=== PATIENT | male | born 1965 | race Caucasian/White ===

== ENCOUNTER → 2024-05-12 | Outpatient (CLI) | payer BC ==
--- NOTE | 2024-05-13 18:44 | PE ---
EXAMINATION TYPE: PET CT fusion skull to thigh DATE OF EXAM: 05/12/2024 CLINICAL INDICATION:Male, 59 years old with history of R91.1 lung nodule; TECHNIQUE: Following the intravenous administration of 6.70 mCi of F-18 FDG, whole body images are performed from the skull base to the midthigh. Images are reviewed on the computer in the coronal, a xial, and sagittal planes. Reconstructed rotating images are created on independent workstation and reviewed on the computer. A non-contrast CT is performed in conjunction with the PET scan. Glucose level 109 mg/dL CT DLP: 1213.47 mGycm, Automated exposure control for dose reduction was used. COMPARISON: CT None, PET/CT None, MRI: None FINDINGS: Mediastinal SUV mean is 2.23. Hepatic parenchyma SUV mean is 2.43. SKULL BASE AND NECK: There is focal radiotracer uptake of maximum SUV of 8.18 in the region of the lateral right thyroid l obe/supraclavicular region. No obvious lymph node or thyroid nodule within the limitations of a nonco ntrast exam. CHEST, MEDIASTINUM, AND HILAR REGION: Left upper lobe perihilar 2.8 cm pulmonary nodule (series 3, image 98) with a maximum SUV of 15.39. ABDOMEN AND PELVIS: No suspicious radiotracer activity. MUSCULOSKELETAL STRUCTURES: No suspicious radiotracer activity. OTHER CT: Small hiatal hernia. Cholelithiasis. Hepatic steatosis. Bilateral vasectomy changes. IMPRESSION: 1. FDG avid left upper lobe perihilar 2.8 cm pulmonary nodule most consistent with primary lung canc er. 2. Single focal FDG radiotracer focus in the region of the right thyroid lobe/supraclavicular region without CT correlate within the limitations of a noncontrast exam. May represent a thyroid nodule ve rsus lymph node. Radiotracer uptake raises concern for metastasis. Consider further evaluation with C T neck with IV contrast.
== END | disposition home or self-care (01) ==
LOC: RADPETMAIN 08:44
PROVIDERS: ATTEND Internal Medicine Critical Care Medicine
DX: R91.1 Solitary pulmonary nodule (principal)
CPT/HCPCS: 78815; A9552

== ENCOUNTER 2024-05-26 12:58 | Day surgery (SDC) | payer BC ==
[~2024-05-26 12:58] MED LIST: HYDROmorphone 0.5 MG/0.5 ML SYRINGE IVP PRN; LACTATED RINGERS 1,000 ML IV SCH; LIDOCAINE 1% (10MG/ML) FOR IV START INTRADERMA PRN; droPERidol 5 MG/2 ML VIAL IVP ONE
[2024-05-26] MEDS: IV FLUID CONTINUATION 1,000 ML IV ONE (13:05)
[2024-05-26] MEDS: LACTATED RINGERS 1,000 ML IV SCH (13:07)
[2024-05-26] MEDS: ONDANSETRON 4 MG/2 ML VIAL IVP ONE (13:09)
[2024-05-26] MEDS: DEXAMETHASONE SOD PHOSPHATE 4 MG/ML 1 ML VIAL IV ONE (13:09)
[2024-05-26 13:16] VITALS: RESP 18
[2024-05-26] MEDS ORDERED: NEOSTIGMINE 1 MG/ML 10 ML VIAL ONE (14:09)
[2024-05-26] MEDS ORDERED: SUCCINYLCHOLINE CHLORIDE 200 MG/10 ML VIAL IV ONE (14:09)
[2024-05-26] MEDS ORDERED: LIDOCAINE 1% INJ 10MG/ML (20 ML MDV) ONE (14:09)
[2024-05-26] MEDS ORDERED: fentaNYL (PF) 50 MCG/ML 2 ML AMP ONE (14:09)
[2024-05-26] MEDS ORDERED: GLYCOPYRROLATE 0.2 MG/ML 2 ML VIAL ONE (14:09)
[2024-05-26] MEDS ORDERED: ROCURONIUM 10 MG/ML (5 ML VIAL) IV ONE (14:09)
[2024-05-26] MEDS ORDERED: MIDAZOLAM 2 MG/2 ML VIAL ONE (14:09)
[2024-05-26] MEDS ORDERED: PROPOFOL 10 MG/ML 20 ML VIAL IV ONE (14:09)
--- NOTE | 2024-05-26 14:20 | CT ---
EXAMINATION TYPE: CT Chest [facility] protocol DATE OF EXAM: 05/26/2024 COMPARISON: 05/12/2024. HISTORY: Pulmonary nodule suspicious for malignancy. CT DLP: 771 mGycm. Automated Exposure Control for Dose Reduction was Utilized. TECHNIQUE: CT scan of the thorax is performed without IV contrast. FINDINGS: LUNGS/ PLEURA: Left upper lobe 13 mm nodule and left perihilar 26 mm mass no focal consolidation, pne umothorax or pleural effusion. AIRWAY: Patent and unremarkable. HEART: Size within normal limits. MEDIASTINUM: No gross evidence of adenopathy. No greater than 1.0 cm short axis lymph node. VASCULATURE: No aortic aneurysm. MUSCULOSKELETAL: No acute osseous abnormalities SOFT TISSUES/LYMPH NODES: Unremarkable. LOWER NECK: No significant findings. UPPER ABDOMEN: No significant findings. OTHER gallstones in the gallbladder lumen. IMPRESSION: 1. 13 mm left upper lobe. 2. Perihilar mass measuring 20 mm. 3. No evidence for metastatic disease to mediastinum mediastinum, specifically no greater than 1.0 c m in short axis lymph nodes visualized.
--- NOTE | 2024-05-26 16:00 | P.PCN ---
Date of Procedure: 05/26/24 Operative Findings: Preoperative Diagnosis: Left hilar mass Preoperative Diagnosis: Left hilar mass Procedure(s) Performed: Flexible bronchoscopy Robotic-assisted bronchoscopy and addition to radial ultrasound evaluation of the left hilar mass Robotic-assisted transbronchial needle aspirate, transbronchial biopsies of the left hilar mass pulmonary nodule in addition to a bronchioloalveolar lavage Anesthesia: WAQAR Surgeon: Rohit Augustin Estimated Blood Loss (ml): 0 Pathology: other Condition: stable Disposition: same day Operative Findings: A physical exam was performed. Informed consent was obtained from the patient after explaining all the risks (pneumothorax, life threatening bleeding, infection and adverse effects due to medications), benefits and alternatives to the procedure which the patient appeared to understand and so stated. The patient was connected to the monitoring devices. General anesthesia was induced and the patient was intubated by anesthesia. A final timeout was performed and the procedure confirmed by the attending staff bronchoscopist. The bronchoscope was inserted and the airway examined. Airway examination shows that the distal trachea, Right upper lobe and middle lobe and lower lobe bronchi was all within normal limits. Patient left mainstem bronchus is within normal limits. Examination of left lower lobe was within normal limits. The superior lingula and anterior segment of the left upper lobe was extrinsically compressed. Nevertheless, there was no evidence of any endobronchial lesion. The flexible bronchoscope was removed and the robotic bronchoscope was inserted. Registration was completed. I next guided the robotic bronchoscope using the navigation system into the left upper lobe anterior segment. Once in proper position, the bronchoscope was frozen. The radial EBUS probe was placed through the bronchoscope and confirmed abnormal u/s images vs normal lung. A needle was placed through the working channel and under fluoroscopic guidance, we sampled the area thought to have the mass twice. We then used a cloud biopsy pattern with ultrasound confirmation for 2 additional passes with the needle. U/S evaluation was then used to reconfirm location. Forceps were next introduced through working channel and extended the appropriate distance and 3 transbronchial biopsies were performed using fluoroscopic guidance. The u/s probe was then reinserted to confirm location. When confirmed this process was repeated for a total of 8-10 transbronchial biopsies. After reassessment with EBUS, a brush was placed through the extendable working channel for 1 pass with fluoroscopic guidance. U/S evaluation was then used to confirm location. 40ml of saline was then instilled into the area of the lesion. 10 ml of effluent from the BAL was collected. The aspirate was bloody and ultimately declotted and based on that, the sample was discarded. Flex. bronchoscope was inserted and regular suctioning was done. At the com pletion of the procedure, no residual secretions or bloody material within the airway. The bronchoscope was removed. The patient was extubated. FINDINGS: 1.The airways appeared normal 2 Successful navigation, ultrasonographic identification, and biopsies of left hilar mass 3.The the radial ultrasound view was concentric RECOMMENDATIONS: Await pathology and cytology results The referring physician will be alerted to the results when available. The patient was advised to follow up with the referring physician with the biopsy results Patient will be called with results.
[2024-05-26 16:08] VITALS: TEMP 97
--- NOTE | 2024-05-26 16:34 | XR ---
EXAMINATION TYPE: XR chest 1V DATE OF EXAM: 05/26/2024 4:27 PM CLINICAL INDICATION: Male, 59 years old with history of post bx; [facility] COMPARISON: CT same day. TECHNIQUE: XR chest 1V Frontal view of the chest. FINDINGS: Lungs/Pleura: There is no evidence of pleural effusion, focal consolidation, or pneumothorax. Pulmonary vascularity: Unremarkable. Heart/mediastinum: Cardiomediastinal silhouette is unremarkable. Musculoskeletal: No acute osseous pathology. IMPRESSION: Postbiopsy changes no evidence of pneumothorax.
[2024-05-26 17:05] VITALS: BP 118/69; PULSE 65
--- NOTE | 2024-06-16 10:36 | FL ---
EXAMINATION TYPE: FL bronchoscopy DATE OF EXAM: 05/26/2024 3:59 PM COMPARISON: Pre Operative Images if available both CT/MRI or plain film CLINICAL INDICATION: Male, 59 years old with history of PULMONARY NODULE; TECHNIQUE: FL bronchoscopy, multiple fluoroscopic images provided for procedure. Total fluoroscopy time: 2min 25 seconds Total submitted images to PACS: 2 DAP: 8.0533 mGym2 Gycm2 uGym2 cGycm2 or equivalent. FINDINGS: ION bronchoscopy images demonstrate bronchoscope terminating in the lung. No immediate complications identified, no pneumothorax identified. IMPRESSION: 1. No evidence for intraoperative complication. 2. Please see the operative/procedural note for further details. [facility], , 06/16/2024 10:33 AM
== END 2024-05-26 17:04 | disposition home or self-care (01) ==
LOC: ORWHC2ENDO 12:58
PROVIDERS: ATTEND Internal Medicine Critical Care Medicine
DX: R91.1 Solitary pulmonary nodule
CPT/HCPCS: 31623; 31624; 31628; 31629; 71045; 71250; 87070; 87077; 87102; 87116; 87186; 87205; 87206; 88305

== ENCOUNTER → 2024-06-14 | Outpatient (CLI) | payer BC ==
[2024-06-14 11:59] LABS: INR 0.9 (<1.2); Partial Thromboplastin Time 22.6 sec (22.0-30.0)
[2024-06-14 15:12] LABS: Basophils # (A) 0.06 X 10*3/uL (0.00-0.10); Eosinophils # (A) 0.19 X 10*3/uL (0.04-0.35); Eosinophils % (A) 3.2 %; HCT 40.6 % (39.6-50.0); HGB 13.5 g/dL (13.0-17.0); Lymphocytes # (A) 1.91 X 10*3/uL (0.90-5.00); Lymphocytes % (A) 31.8 %; MCH 31.8 pg (27.0-32.0); MCHC 33.3 g/dL (32.0-37.0); MCV 95.8 FL (80.0-97.0); Mean Platelet Volume 11.4 FL (9.5-12.2); Monocytes # (A) 0.49 X 10*3/uL (0.20-1.00); Monocytes % (A) 8.2 %; NRBC Per 100 WBC 0 X 10*3/uL (0.00-0.01); Neutrophils # (A) 3.33 X 10*3/uL (1.80-7.70); Neutrophils % (A) 55.5 %; Platelet Count 230 X 10*3/uL (140-440); RBC 4.24 X 10*6/uL (4.40-5.60); RDW 12.6 % (11.5-14.5)
[2024-06-14 15:36] LABS: Appearance,Urine Clear (Clear); Bilirubin,Urine Negative (Negative); Blood,Urine Negative (Negative); Color,Urine Yellow (Yellow); Ketones,Urine Negative (Negative); Nitrite,Urine Negative (Negative); PH, Urine 7.5; Specific Gravity,Urine 1.017 (1.001-1.030)
[2024-06-14 17:21] LABS: Blood Urea Nitrogen 13.7 mg/dL (9.0-27.0); Chloride 105 mmol/L (96-109); Glucose 113 mg/dL (70-110); Potassium 4.3 mmol/L (3.5-5.5); Sodium 143 mmol/L (135-145)
== END | disposition home or self-care (01) ==
LOC: LABPAT 10:56
PROVIDERS: ATTEND Internal Medicine Geriatric Medicine
DX: Z01.818 Encounter for other preprocedural examination
CPT/HCPCS: 80051; 81003; 82565; 82947; 84520; 85025; 85610; 85730; 86850; 86900; 86901; 87086; 93005

== ENCOUNTER 2024-06-23 09:10 | Inpatient (IN) | payer BC ==
[~2024-06-23 09:10] MED LIST changes: -LACTATED RINGERS 1,000 ML IV SCH; -LIDOCAINE 1% (10MG/ML) FOR IV START INTRADERMA PRN; -droPERidol 5 MG/2 ML VIAL IVP ONE; +fentaNYL (PF) 50 MCG/ML 2 ML AMP IV PRN
[2024-06-23] MEDS: IV FLUID CONTINUATION 1,000 ML IV ONE ×4 (09:54)
[2024-06-23] MEDS: LACTATED RINGERS 1,000 ML IV SCH (10:06)
[2024-06-23] MEDS: ONDANSETRON 4 MG/2 ML VIAL IVP STA (10:06)
[2024-06-23] MEDS: MIDAZOLAM 2 MG/2 ML VIAL IV ONE (11:04)
[2024-06-23] MEDS ORDERED: ACETAMINOPHEN IV (For NPO) 1,000 MG/100 ML VIAL ONE (11:50)
[2024-06-23] MEDS ORDERED: NEOSTIGMINE 1 MG/ML 10 ML VIAL ONE (11:50)
[2024-06-23] MEDS ORDERED: ROPIVACAINE 5 MG/ML 30 ML VIAL ONE (11:50)
[2024-06-23] MEDS ORDERED: DEXAMETHASONE SOD PHOSPHATE 4 MG/ML 1 ML VIAL ONE (11:50)
[2024-06-23] MEDS ORDERED: PROPOFOL 10 MG/ML 20 ML VIAL IV ONE (11:50)
[2024-06-23] MEDS ORDERED: fentaNYL (PF) 50 MCG/ML 2 ML AMP ONE (11:50)
[2024-06-23] MEDS ORDERED: MIDAZOLAM 2 MG/2 ML VIAL ONE (11:50)
[2024-06-23] MEDS ORDERED: ROCURONIUM 10 MG/ML (5 ML VIAL) IV ONE (11:50)
[2024-06-23] MEDS ORDERED: SUCCINYLCHOLINE CHLORIDE 200 MG/10 ML VIAL IV ONE (11:50)
[2024-06-23] MEDS ORDERED: SODIUM CHLORIDE 0.9% (PF) 10 ML VIAL ONE (11:50)
[2024-06-23] MEDS ORDERED: HYDROmorphone (PF) 1 MG/ML ONE (11:50)
[2024-06-23] MEDS ORDERED: ALBUTEROL HFA INHALER INHALATION ONE (11:50)
[2024-06-23] MEDS ORDERED: GLYCOPYRROLATE 0.2 MG/ML 2 ML VIAL ONE (11:50)
[2024-06-23] MEDS ORDERED: KETAMINE HCL IN 0.9 % NACL 50 MG/5 ML SYRINGE ONE (11:50)
[2024-06-23] MEDS ORDERED: LIDOCAINE 1% INJ 10MG/ML (20 ML MDV) ONE (11:50)
[2024-06-23] MEDS: ceFAZolin 3 GM in SODIUM CHLORIDE 0.9% 100 ML IVPB PRN (11:55)
[2024-06-23] MEDS: BUPIVACAINE (PF) 0.5% 30 ML VIAL SQ ONE (12:53)
[2024-06-23 13:20] LABS: ABG Base Excess -0.8 mmol/L; ABG HCO3 26 mmol/L (21-25); ABG Oxygen Saturation 88.5 % (94-97); ABG PCO2 51 mmHg (35-45); ABG PH 7.32 (7.35-7.45); ABG PO2 60 mmHg (83-108); ABG TCO2 28 mmol/L (19-24)
[2024-06-23 13:21] LABS: Allen Test Performed? Yes
[2024-06-23 14:01] LABS: ABG Base Excess -0.6 mmol/L; ABG HCO3 26 mmol/L (21-25); ABG Oxygen Saturation 89.9 % (94-97); ABG PCO2 47 mmHg (35-45); ABG PH 7.34 (7.35-7.45); ABG PO2 61 mmHg (83-108); ABG TCO2 27 mmol/L (19-24); Allen Test Performed? Yes
--- NOTE | 2024-06-23 14:57 | P.OP ---
Date of Procedure: 06/23/24 Preoperative Diagnosis: Lung cancer left upper lobe Postoperative Diagnosis: Same Procedure(s) Performed: Robotic assisted thoracoscopic left upper lobectomy with mediastinal lymph node dissection Anesthesia: CAMILOA Surgeon: Alec Rodriguez Estimated Blood Loss (ml): 20 IV fluids (ml): 1,000 Urine output (ml): 250 Pathology: other (Left upper lobe 4 frozen section bronchial margin check and permanent section; lymph node stations L5, L8, L9, L10, L11, level 7 all for permanent section) Condition: stable Disposition: PACU Indications for Procedure: 59-year-old male with newly discovered left upper lobe central tumor on CT scree lxami. Workup revealed positive malignancy with no evidence of metastasis. He was a good candidate for lobectomy and elective surgery was scheduled. Operative Findings: There were no intrapleural adhesions. Fissures were complete. There was extensive anthracotic lymphadenopathy. No obvious tumor involvement of the lymph nodes. Approximately 3 cm central tumor was present. Bronchial margin was negative. Description of Procedure: Patient was brought to the operating room and placed supine on the operating table. General anesthesia was induced. He was intubated with a double-lumen endotracheal tube and it was positioned appropriately with fiberoptic bronchoscopy. No endobronchial lesions were noted. Tube was secured in position and the patient turned in the right lateral decubitus position. He was appropriately positioned for robotic lobectomy. The left chest was sterilely prepped and draped. Initial incision was made in the eighth interspace in the midaxillary line under single lung ventilation. 8 mm robotic port was placed in the pleural space. After confirming presence in the pleural space with thoracoscopy CO2 insufflation was begun. 2 robotic 12 mm ports were placed anterior and posterior to the initial port in the same interspace. A second 8 mm port was placed posteriorly in the about the fifth interspace. Working port was placed anteriorly at the level of the diaphragm. The robot was docked. Chest was explored with findings noted as above. We began dissection in the fissure and dissected out the lingular branch of the pulmonary artery, ligating and dividing it with a robotic stapler. 2 further branches were dissected out proximal to this and were ligated and divided with a single firing of a robotic stapler. Dissection was now carried out in the hilum down onto the division of the mainstem bronchus to the upper and lower lobe bronchus and the lymph node there was resected and sent as L11 lymph node. Dissection was now taken down to the inferior pulmonary ligament which was mobilized. Dissection was continued posteriorly past and above the inferior pulmonary vein. Are 8 and level 7 lymph nodes were resected in the region of the left mainstem bronchus and then dissection was carried up toward the pulmonary artery. L10 lymph nodes were resected here. Going more superiorly we could not identify any L6 lymph nodes. Dissection was now carried anteriorly. We dissected out the superior pulmonary vein. The L5 lymph nodes were resected. We encircled the superior pulmonary vein and ligated and divided it with a robotic vascular stapler. This brought us onto the bronchus. Further lymph nodes were resected some en bloc and some separately and sent as L11 lymph nodes. We encircled the left upper lobe bronchus and ligated and divided it with a robotic green stapler. We are now able to encircle the truncus anteriosus. It was ligated and divided with a single firing of a robotic vascular stapler. This completed the resection of the left upper lobe. It was placed in an Endo Catch bag. The robot was undocked. Working port incision was enlarged in the left upper lobe was brought out in the bag through this incision. It was sent for bronchial margin check which did return negative. Chest was checked for hemostasis throughout and then irrigated with warm water. We inflated the lung under water toward her and saw no air leaks. Water was evacuated and a 28 Icelandic chest tube was placed through separate stab incision and positioned posterior apically. We again inflated the lung securing the chest tube and connecting it to a Pleur-evac. The incisions were closed with layers of Vicryl suture. Skin glue and dry sterile dressings were applied. Rib blocks were performed posteriorly at the level of the incisions. The patient was extubated and transferred to recovery in stable condition.
[2024-06-23] MEDS: HYDROmorphone 0.5 MG/0.5 ML SYRINGE IVP PRN (15:40)
[2024-06-23] MEDS ORDERED: ONDANSETRON 4 MG/2 ML VIAL IVP PRN (16:37)
[2024-06-23] MEDS ORDERED: bisacodyL 10 MG SUPP RECTAL PRN (16:37)
[2024-06-23] MEDS ORDERED: IPRATROPIUM-ALBUTEROL 3 ML NEB IH PRN (16:37)
--- NOTE | 2024-06-23 16:38 | XR ---
EXAMINATION TYPE: XR chest 1V portable DATE OF EXAM: 06/23/2024 Comparison: 05/26/2024 Clinical History: 59-year-old male post left upper lobectomy Findings: There is a left-sided chest tube present. Heart mildly enlarged. Extensive opacification throughout t he right upper lobe and additional patchy density at the right lower lung. No sizable pleural effusio n on the frontal view. Impression: 1. Left-sided chest tube. No appreciable pneumothorax. 2. Extensive airspace disease throughout the right upper lobe and to a lesser extent within the right mid and lower lung. 3. Mild cardiomegaly. [facility], , 06/23/2024 4:35 PM
[2024-06-23] MEDS: KETOROLAC 15 MG/ML 1 ML VIAL IVP SCH (17:11)
[2024-06-23] MEDS: HEPARIN SODIUM,PORCINE 5,000 UNIT/ML 1 ML VIAL SQ SCH (17:11)
[2024-06-23] MEDS: DEXTROSE 5%-0.45% NACL 1,000 ML IV SCH (17:12)
[2024-06-23] MEDS: traMADol 50 MG TAB PO PRN (18:25)
--- NOTE | 2024-06-23 18:35 | P.ANPRN ---
Procedure Note - Anesthesia - Nerve Block Performed Left Erector Spinae Single Time Out Performed: Yes Date of Procedure: 06/23/24 Procedure Start Time: 11:14 Procedure Stop Time: 11:17 Location of Patient: PreOp Indication: Acute Post-Operative Pain, Requested by Surgeon Sedation Type: Sedate with meaningful contact maintained Preparation: Sterile Prep Position: Sitting Needle Types: Pajunk Needle Gauge: 21 Ultrasound used to visualize needle placement: Yes Ultrasound used to observe medication spread: Yes Blood Aspirated: No Pain Paresthesia on Injection Noted: No Resistance on Injection: Normal Image Stored and Saved: Yes Events: Uneventful and Well Tolerated (Again attempted 3.5% 150 cc plus normal saline 10 cc plus dexamethasone 4 mg given at T6 on the left side)
[2024-06-23] MEDS: ACETAMINOPHEN TAB 325 MG TAB PO PRN (19:26)
[2024-06-23] MEDS: ceFAZolin 3 GM in SODIUM CHLORIDE 0.9% 100 ML IVPB SCH (19:51)
[2024-06-23] MEDS: IPRATROPIUM-ALBUTEROL 3 ML NEB IH SCH (20:24)
[2024-06-23] MEDS: HYDROmorphone 1 MG/ML 1 ML SYRINGE IVP PRN (20:42)
--- NOTE | 2024-06-23 22:03 | P.CONS ---
History of Present Illness - Reason for Consult Consult date: 06/23/24 Medical management Requesting physician: Alec Rodriguez - Chief Complaint Post left upper lobectomy with mediastinal lymph node dissection - History of Present Illness HISTORY OF PRESENT ILLNESS: 59-year-old one of our office patient who has been seen for the last few months as a new patient was originally presented to get established with his history of mild dyspnea and shortness of breath and cough obtained an x-ray of the lung and furthermore CAT scan shows left upper lobe fairly central mass he had a PET scan performed in the end of April which showed uptake in the mass it also showed small satellite nodular more superficial in the lung which did not have any uptake and measure about 1 cm, central mass measured about 2 to 3 cm the patient underwent bronchoscopy with Dr. GOLDBERG with biopsy and fortunately was nonconclusive. Was referred to cardiothoracic for consideration of lobectomy. Lung function test done and showed FEV1 of 86 percentile patient was scheduled for elective surgery today 06/23/2024, ended up having robotic assisted thoracoscopy of the left upper lobectomy with mediastinal lymph node dissection successful procedure and ended up leaving chest tube with suction. Patient is having slight shortness of breath require O2, mild nausea without vomiting, quite bit pain required pain meds which has been doing well. Otherwise able to void IV is going well vital signs Remain stable with pulse of 72 respiration 18 blood pressure 117/76 with pulse oximetry to 96 percentile. REVIEW OF SYSTEMS: CONSTITUTIONAL: Mildly obese wearing oxygen in no acute respiratory distress. EYES: No icterus sclerae, no conjunctivitis. EARS, NOSE, MOUTH, THROAT, and FACE: No sore throat, lymphadenopathy, carotid bruits or deformity. RESPIRATORY: Positive for significant shortness of breath no cough or wheezes. Chest tube from the left side surgical incision looks fine. CARDIOVASCULAR: No CP, Palpitation, PND, Orthopnea, or angina. GASTROINTESTINAL: No Abd pain, Nausea or vomiting, no Diarrhea or constipation, No GI Bleed, no distention or masses. GENITOURINARY: Negative for Hematuria or UTI, no kidney stones. INTEGUMENT/BREAST: Negative for any muscular injury with mild osteoarthritis.. HEMATOLOGIC/LYMPHATIC: Negative for bleed or purpura. MUSCULOSKELTAL: Negative for Myalgia or arthralgia. NEURLOGICAL: No LOC, Sz or syncope, blurred vision dizziness or abnormality.. BEHAVIORAL/PSYCH: Negative. ENDOCRINE: Negative. Social history: Smoke 1-1 and half pack a day for 40 years, and drink 1-2 drinks every day on more regular basis patient had apparently stopped sometimes 4 weeks with no complication side effect or withdrawal symptoms. 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 PHYSICAL EXAMINATION: General Appearance: Alert, cooperative, no distress, appears stated age. Neck HEENT: Supple, no lymphadenopathy, no thyroid enlargement, no carotid bruits. Lungs: Decreased breath sound in the left side with fine rhonchi no crackles mild expiratory wheezes. Chest Wall: Left side still have chest tube slightly decreased extension no deformity significant tenderness and discomfort. Heart: Regular rate and rhythm, S1, S2 normal, no murmur, rub or gallop. Back: Symmetric, no curvature, ROM normal, no CVA tenderness. Abdomen: Soft, non-tender, bowel sounds active all four quadrants, no masses, no organomegaly. Extremities: Extremities normal, atraumatic, no cyanosis or edema. Pulses: 2+ and symmetric. Skin: Skin color, texture, tugor normal, no rashes or lesions. Neurologic: Alert oriented x3 cranial nerves II through XII intact, no motor deficit, no abnormal balance or gait. ASSESSMENT AND PLAN: _Post robotic assisted thoracoscopy left upper lobectomy with mediastinal lymph node dissection and respond to mass of the left upper lobe which will be assessed by having the whole lobe dissected for any possibility of cancer. _Highly suspicious for lung cancer with mass in left upper lobe postresection with mediastinal lymph node resection as well. _History of hyperlipidemia: Has been on atorvastatin which will be resumed as of tomorrow. _Mild COPD: Continue DuoNeb will add Pulmicort continue oxygen as well. _History of smoking and nicotine dependency had a quit last month can benefit from nicotine patch at this point. _Hyperglycemia: With no sign of type 2 diabetes so far 22 Accu-Chek with sliding scales coverage. _BPH: No sign of urinary retention watch symptoms carefully. _Elevated blood pressure: Will continue low-salt diet no medication needed so far. _GI prophylaxis: Continue patient on Pepcid 20 mg daily. _DVT prophylaxis: Will do heparin 5000 units subcutaneous twice a day. CODE STATUS: Full code. Dr. Rodriguez thank you much for the consult I can be any further help to please let me know. Past Medical History Past Medical History: COPD, Hyperlipidemia, Osteoarthritis (OA) Additional Past Medical History / Comment(s): destiny does not have COPD, susp icious mass left lung per pt History of Any Multi-Drug Resistant Organisms: None Reported Past Surgical History: Joint Replacement Additional Past Surgical History / Comment(s): rt knee replaced, bronchoscopy recently Past Anesthesia/Blood Transfusion Reactions: No Reported Reaction Smoking Status: Former smoker - Past Family History Mother Family Medical History: Cancer Additional Family Medical History / Comment(s): breast, with mets to bone Medications and Allergies Home Medications Medication Instructions Recorded Confirmed Type Ibuprofen 800 mg PO Q8H PRN 05/23/24 06/16/24 History Vit D (Unk) 1 tab PO DAILY 05/23/24 06/16/24 History Atorvastatin(Unknown Dose) 1 tab PO DAILY 06/16/24 History Allergies Allergy/AdvReac Type Severity Reaction Status Date / Time No Known Allergies Allergy Verified 06/23/24 09:57 Physical Exam Vitals: Vital Signs Temp Pulse Resp BP Pulse Ox 06/23/24 17:15 73 18 126/83 99 06/23/24 16:25 74 14 116/81 95 06/23/24 16:10 71 14 117/70 97 06/23/24 15:55 69 14 107/64 95 06/23/24 15:40 73 14 122/66 94 L 06/23/24 15:25 72 14 120/68 97 06/23/24 15:10 76 14 138/79 97 06/23/24 14:55 96.9 F L 91 14 148/83 95 06/23/24 11:27 70 16 136/75 97 06/23/24 10:15 97.1 F L 75 16 144/77 96 Intake and Output 06/23/24 06/23/24 06/23/24 06:59 14:59 22:59 Intake Total 1800 Output Total 220 150 Balance 1580 -150 Intake: IV 1800 Output: Urine 200 150 Estimated Blood Loss 20 Other: Weight 137.3 kg Results Labs: Abnormal Lab Results - Last 24 Hours (Table) 06/23/24 06/23/24 Range/Units 13:10 13:54 ABG pH 7.32 L 7.34 L (7.35-7.45) ABG pCO2 51 H 47 H (35-45) mmHg ABG pO2 60 L 61 L (83-108) mmHg ABG HCO3 26 H 26 H (21-25) mmol/L ABG Total CO2 28 H 27 H (19-24) mmol/L ABG O2 Saturation 88.5 L 89.9 L (94-97) %
[2024-06-24] MEDS: ONDANSETRON 4 MG/2 ML VIAL IVP ONE (00:08)
[2024-06-24] MEDS: DEXAMETHASONE SOD PHOSPHATE 4 MG/ML 1 ML VIAL IV ONE (00:08)
[2024-06-24 07:01] LABS: Basophils % (A) 0 %; Eosinophils % (A) 0 %; HCT 38.2 % (39.0-53.0); HGB 12.5 gm/dL (13.0-17.5); Lymphocytes # (A) 1.5 k/uL (1.0-4.8); Lymphocytes % (A) 17 %; MCH 32.2 pg (25.0-35.0); MCHC 32.7 g/dL (31.0-37.0); MCV 98.7 fL (80.0-100.0); Mean Platelet Volume 8.4; Monocytes # (A) 0.4 k/uL (0-1.0); Monocytes % (A) 5 %; Neutrophils # (A) 6.6 k/uL (1.3-7.7); Neutrophils % (A) 75 %; Platelet Count 218 k/uL (150-450); RBC 3.87 m/uL (4.30-5.90); RDW 12.3 % (11.5-15.5); WBC 8.8 k/uL (3.8-10.6)
[2024-06-24 07:26] LABS: African American GFR (CKD) >90 (>60 ml/min/1.73 sqM); Anion Gap 9 mmol/L; Blood Urea Nitrogen 19 mg/dL (9-20); Calcium 9.2 mg/dL (8.4-10.2); Carbon Dioxide 24 mmol/L (22-30); Chloride 102 mmol/L (98-107); Glucose 113 mg/dL (74-99); Non-African American GFR(CKD) 79 (>60 ml/min/1.73 sqM); Potassium 4.3 mmol/L (3.5-5.1); Sodium 135 mmol/L (137-145)
--- NOTE | 2024-06-24 07:32 | P.PN ---
Subjective Progress Note Date: 06/24/24 Principal diagnosis: Lung cancer left upper lobe. Past medical history significant for COPD, hyperlipidemia, BPH, morbid obesity with a BMI of 41.3 kg/m, osteoarthritis and history of chronic ongoing tobacco dependence, quit smoking 1 to 2 weeks ago. POD #1 Robotic assisted thoracoscopic left upper lobectomy with mediastinal lymph node dissection. The patient was seen and examined in follow-up today June 24, 2024 at his bedside on the third floor cardiac stepdown unit. He is currently sitting up to the bedside chair, is awake, alert, oriented x 3 and is in no acute apparent distress. Denies any complaints of shortness of breath, although is complaining of some surgical type pain with taking a deep breath and coughing. He also reports that he has a productive cough with hanna-colored tenacious sputum. Oxygen saturations are 95% on room air and he is achieving 1850 mL on his incentive spirometry with encouragement. Left pleural chest tube remains in place to low continuous wall suction -20 cm H2O. No air leak is present. Draining thin serosanguineous drainage with 100 mL output in the last 8 hours and 120 mL output since surgery. Remote telemetry showing normal sinus rhythm heart rate 78 bpm. He has been afebrile in the last 24 hours. Surgical pat hology results remain pending. Laboratory and chest x-ray results reviewed. Objective - Vital Signs Vital signs: Vital Signs Temp 98.2 F 06/24/24 03:00 Pulse 78 06/24/24 03:00 Resp 18 06/24/24 03:00 BP 116/78 06/24/24 03:00 Pulse Ox 95 06/24/24 03:00 FiO2 Intake & Output 06/23/24 06/24/24 06/24/24 18:59 06:59 18:59 Intake Total 1800 480 Output Total 370 900 Balance 1430 -420 Weight 137.3 kg 138.2 kg Intake: IV 1800 Oral 480 Output: Chest Tube Drainage 100 Chest Tube Left Mid- 100 Axillary Chest Urine 350 800 Estimated Blood Loss 20 Other: Voiding Method Indwelling Catheter - Exam CONSTITUTIONAL: Appears comfortable, cooperative, no acute distress RESPIRATORY: Lungs sounds diminished bilaterally. Respirations symmetrical, nonlabored. Currently on room air with oxygen saturation 95%. Able to achieve 1850 mL on his incentive spirometry. Strong cough. CARDIOVASCULAR: S1, S2 present. Regular rate and rhythm, sinus rhythm on remote telemetry, heart rate 78 bpm. Palpable peripheral pulses bilaterally. No edema present. No calf pain or tenderness noted. SCDs present. GASTROINTESTINAL: Abdomen soft, nontender, nondistended. Active bowel sounds present 4 quadrants. Tolerating diet. Passing flatus. GENITOURINARY: Continues to void, urine output in the last 8 hours 800 mL. INTEGUMENTARY: Skin is warm and dry with no clubbing or cyanosis is present. Left chest thoracic incisions well approximated and covered with dry, intact dressings. NEUROLOGIC: Cranial nerves II through XII intact. No focal deficits. MUSKULOSKELETAL: Able to move all extremities, strength equal bilaterally, gait normal. PSYCHIATRIC: Alert and oriented to person place and time, appropriate affect, intact judgment and insight. INVASIVE LINES AND TUBES: Left pleural chest tube present and connected to low continuous wall suction, no air leak present. Left pleural chest tube with 100 mL thin serosanguineous drainage overnight, 120 mL in the last 24 hours. - Allied health notes Allied health notes reviewed: nursing - Labs CBC & Chem 7: 06/24/24 05:53 06/24/24 05:53 Labs: Abnormal Lab Results - Last 24 Hours (Table) 06/23/24 06/23/24 06/24/24 Range/Units 13:10 13:54 05:53 RBC 3.87 L (4.30-5.90) m/uL Hgb 12.5 L (13.0-17.5) gm/dL Hct 38.2 L (39.0-53.0) % ABG pH 7.32 L 7.34 L (7.35-7.45) ABG pCO2 51 H 47 H (35-45) mmHg ABG pO2 60 L 61 L (83-108) mmHg ABG HCO3 26 H 26 H (21-25) mmol/L ABG Total CO2 28 H 27 H (19-24) mmol/L ABG O2 Saturation 88.5 L 89.9 L (94-97) % - Imaging and Cardiology Chest x-ray: report reviewed, image reviewed Assessment and Plan Assessment: Left upper lobe central mass, lung cancer, status post robotic assisted thoracoscopic left upper lobectomy with mediastinal lymph node dissection History of COPD with a preoperative FEV1 3.3 L which is 86% of predicted value Hyperlipidemia Morbid obesity with a BMI of 41.3 kg/m BPH Osteoarthritis History of chronic tobacco dependence, quit smoking 1 to 2 weeks ago Plan: Left pleural chest tube and has been placed to waterseal, removed from low continuous wall suction. Encourage use of incentive spirometry 10 times every hour while awake. Continue to follow surgical pathology results. Continue to monitor daily labs and chest x-rays. Pain control per current as needed orders. Increase activity as tolerated. Out of bed for all meals. Ambulate as tolerated. Medical management other comorbidities per internal medicine and pulmonary critical care service recommendations. Discharge planning is in place, anticipate discharge home in the next 24 hours. More recommendations to follow based on patient's clinical course. Time with Patient: Greater than 30
--- NOTE | 2024-06-24 07:57 | XR ---
EXAMINATION TYPE: XR chest 1V DATE OF EXAM: 06/24/2024 HISTORY: Shortness of breath. COMPARISON: 06/23/2024 TECHNIQUE: Single view of the chest is submitted. FINDINGS: Demonstrated are scattered senescent parenchymal change. Significantly improved aeration right upper lobe. Left-sided chest tube is in place without evidence for pneumothorax. The heart is stable. Hilar and mediastinal structures are within normal limits. Degenerative changes are seen of the dorsal spine. IMPRESSION: 1. Significantly improved aeration right upper lobe. Left-sided chest tube is in place without evide nce for pneumothorax. [facility], , 06/24/2024 7:55 AM
[2024-06-24] MEDS: FAMOTIDINE 20 MG TAB PO SCH (08:59)
[2024-06-24] MEDS ORDERED: ATORVASTATIN 40 MG PO SCH (09:00)
--- NOTE | 2024-06-24 11:05 | P.CNPUL ---
History of Present Illness Consult date: 06/24/24 Requesting physician: Alec Rodriguez Reason for consult: COPD, lung mass, abnormal CXR/CT Chief complaint: Suspected lung cancer. History of present illness: Pulmonary consultation dated June 24, 2024. This is a 59-year-old male who is seen today in room 354. The patient is postoperative day #1, status post robotically assisted left upper lobectomy, with mediastinal lymph node dissection, for suspected lung cancer. The patient had robotic bronchoscopy with my partner, but the sampling was nondiagnostic. Because a lesion in the left upper lobe was FDG avid, the patient was subjected to excisional surgery, by Dr. Rodriguez, which took place yesterday. Currently, the patient is on room air. He is not receiving any IV fluids. He is hoping to be discharged tomorrow. He is feeling very well. Current labs include a white count 8.8, hemoglobin 12.5, hematocrit 38.2, and a normal platelet count. Sodium 135, potassium 4.3, chlorides 102, CO2 24, anion gap 9, BUN 19, creatinine 1.02. Calcium is 9.2. Chest x-ray shows significantly improved aeration, to the right upper lobe. Left-sided chest tube is noted. No pneumothorax. Review of Systems REVIEW OF SYSTEMS: CONSTITUTIONAL: [Negative.] NEUROLOGIC: [ Negative.] HEENT: [ Negative.] CARDIAC: [Negative.] PULMONARY: Expected pain at the surgical site. GI: [Negative.] : [Negative.] RHEUMATOLOGIC: [ Negative.] IMMUNOLOGIC: [ Negative.] ENDOCRINE: [Negative. ] DERMATOLOGIC: [Negative.] Past Medical History Past Medical History: COPD, Hyperlipidemia, Osteoarthritis (OA) Additional Past Medical History / Comment(s): destiny does not have COPD, suspicious mass left lung per pt History of Any Multi-Drug Resistant Organisms: None Reported Past Surgical History: Joint Replacement Additional Past Surgical History / Comment(s): rt knee replaced, bronchoscopy recently Past Anesthesia/Blood Transfusion Reactions: No Reported Reaction Smoking Status: Former smoker - Past Family History Mother Family Medical History: Cancer Additional Family Medical History / Comment(s): breast, with mets to bone Medications and Allergies Home Medications Medication Instructions Recorded Confirmed Type Ibuprofen 800 mg PO Q8H PRN 05/23/24 06/16/24 History Vit D (Unk) 1 tab PO DAILY 05/23/24 06/16/24 History Atorvastatin(Unknown Dose) 1 tab PO DAILY 06/16/24 History Allergies Allergy/AdvReac Type Severity Reaction Status Date / Time No Known Allergies Allergy Verified 06/23/24 09:57 Physical Exam Osteopathic Statement: *. No significant issues noted on an osteopathic structural exam other than those noted in the History and Physical/Consult. Vitals: Vital Signs Temp Pulse Pulse Resp BP Pulse Ox 06/24/24 09:33 82 16 06/24/24 09:26 94 L 06/24/24 09:25 72 16 06/24/24 08:47 98.4 F 82 16 117/76 94 L 06/24/24 03:00 98.2 F 78 18 116/78 95 06/23/24 23:05 22 95 06/23/24 23:00 98.4 F 82 20 124/80 97 06/23/24 20:41 74 06/23/24 20:33 73 06/23/24 19:44 97.5 F L 72 18 117/76 96 06/23/24 17:15 73 18 126/83 99 06/23/24 16:25 74 14 116/81 95 06/23/24 16:10 71 14 117/70 97 06/23/24 15:55 69 14 107/64 95 06/23/24 15:40 73 14 122/66 94 L 06/23/24 15:25 72 14 120/68 97 06/23/24 15:10 76 14 138/79 97 06/23/24 14:55 96.9 F L 91 14 148/83 95 06/23/24 11:27 70 16 136/75 97 Intake and Output 06/23/24 06/24/24 06/24/24 22:59 06:59 14:59 Intake Total 480 138 Output Total 150 900 Balance -150 -420 138 Intake: IV 20 Invasive Line 1 10 Invasive Line 2 10 Oral 480 118 Output: Chest Tube Drainage 100 Chest Tube Left Mid- 100 Axillary Chest Urine 150 800 Other: Voiding Method Indwelling Catheter Indwelling Catheter Weight 138.2 kg No acute distress, oriented 3. Currently on room air. HEENT examination is grossly unremarkable. Mucous membranes are moist. No oral lesions. Neck supple. Full range of motion. No adenopathy thyromegaly or neck vein dis tention. Cardiovascular examination reveals regular rhythm rate. S1-S2 normal. No S3 or S4. No discernible murmur noted. Lungs reveal mostly clear breath sounds. Minimal rhonchi. No wheezes or crackles. Breath sounds equal bilaterally. Left-sided chest tube is noted. Abdomen soft bowel sounds are heard. No masses or tenderness. Extremities are intact. No cyanosis clubbing or edema. Skin is without rash or lesion. Neurologic examination is brief but nonfocal. Results - Laboratory Findings CBC and BMP: 06/24/24 05:53 06/24/24 05:53 ABG ABG pH 7.34 (7.35-7.45) L 06/23/24 13:54 ABG pCO2 47 mmHg (35-45) H 06/23/24 13:54 ABG pO2 61 mmHg (83-108) L 06/23/24 13:54 ABG O2 Saturation 89.9 % (94-97) L 06/23/24 13:54 Abnormal lab findings: Abnormal Labs 06/23/24 06/23/24 06/24/24 13:10 13:54 05:53 RBC 3.87 L Hgb 12.5 L Hct 38.2 L ABG pH 7.32 L 7.34 L ABG pCO2 51 H 47 H ABG pO2 60 L 61 L ABG HCO3 26 H 26 H ABG Total CO2 28 H 27 H ABG O2 Saturation 88.5 L 89.9 L Sodium Glucose 06/24/24 05:53 RBC Hgb Hct ABG pH ABG pCO2 ABG pO2 ABG HCO3 ABG Total CO2 ABG O2 Saturation Sodium 135 L Glucose 113 H - Diagnostic Findings Chest x-ray: image reviewed Assessment and Plan Assessment: Postoperative day #1, status post robotically assisted left upper lobectomy and mediastinal lymph node dissection. Suspected lung cancer, left upper lobe. History of mild COPD. History of hyperlipidemia. Prior history of nicotine addiction. BPH. Osteoarthritis. Plan: Plan dated June 24, 2024. The patient is seen today in room 354. He is on room air. No IV fluids. The patient is postoperative day #1, status post robotically assisted left upper lobe lobectomy, and mediastinal lymph node dissection. The patient had previous robotic bronchoscopy, but sampling was nondiagnostic. The lesion in the left upper lobe was FDG avid. Labs, x-rays, and medications are reviewed. Prognosis is guarded. Will continue to follow. Pathology is not yet back. Time with Patient: Greater than 30
--- NOTE | 2024-06-24 11:22 | P.ANPRN ---
Procedure Note - Anesthesia - Invasive Line Right Arterial Line Time Out Performed: Yes Date of Procedure: 06/23/24 Location of Patient: PreOp Arterial Line Location: Radial Ultrasound Used: No Purpose - Visualization and Identification of Vasculature: No Image Stored and Saved: No Narrative: Invasive line placement per sterile protocol utilized.
[2024-06-24 12:08] LABS: Glucose,Whole Blood 160 mg/dL (70-110)
[2024-06-24] MEDS: INSULIN ASPART (NovoLOG) 100 UNIT/ML VIAL SQ SCH (12:41)
[2024-06-24 16:23] LABS: Glucose,Whole Blood 123 mg/dL (70-110)
[2024-06-24] MEDS: traMADol 50 MG TAB PO PRN (19:20)
[2024-06-24 20:04] LABS: Glucose,Whole Blood 132 mg/dL (70-110)
[2024-06-24] MEDS: HYDROmorphone 1 MG/ML 1 ML SYRINGE IVP STA (20:40)
--- NOTE | 2024-06-24 20:59 | P.PN ---
Subjective Progress Note Date: 06/24/24 HISTORY OF PRESENT ILLNESS: 59-year-old one of our office patient who has been seen for the last few months as a new patient was originally presented to get established with his history of mild dyspnea and shortness of breath and cough obtained an x-ray of the lung and furthermore CAT scan shows left upper lobe fairly central mass he had a PET scan performed in the end of April which showed uptake in the mass it also showed small satellite nodular more superficial in the lung which did not have any uptake and measure about 1 cm, central mass measured about 2 to 3 cm the patient underwent bronchoscopy with Dr. GOLDBERG with biopsy and fortunately was nonconclusive. Was referred to cardiothoracic for consideration of lobectomy. Lung function test done and showed FEV1 of 86 percentile patient was scheduled for elective surgery today 06/23/2024, ended up having robotic assisted thoracoscopy of the left upper lobectomy with mediastinal lymph node dissection successful procedure and ended up leaving chest tube with suction. Patient is having slight shortness of breath require O2, mild nausea without vomiting, quite bit pain required pain meds which has been doing well. Otherwise able to void IV is going well vital signs Remain stable with pulse of 72 respiration 18 blood pressure 117/76 with pulse oximetry to 96 percentile. 06/24/2024: He is doing very well out of bed today his chest tube draining slight only, was evaluated by pulmonary today he is not on any IV fluid no sign of bleeding, chest tube still draining with no airleak. Vitals are stable with pulse ox on room air between 93 and 96 percentile. Blood pressure stable. Laboratory value today globin 12.5 kidney function and creatinine are normal. His blood sugar the highest was 160 in between lowest was around 120 still on insulin per sliding scales and at some point patient will benefit from SGLT2 product if proven to have hyperglycemia with early stage of diabetes but his blood sugar was elevated probably because of the steroid he received yesterday. REVIEW OF SYSTEMS: CONSTITUTIONAL: Mildly obese wearing oxygen in no acute respiratory distress. EYES: No icterus sclerae, no conjunctivitis. EARS, NOSE, MOUTH, THROAT, and FACE: No sore throat, lymphadenopathy, carotid bruits or deformity. RESPIRATORY: Positive for significant shortness of breath no cough or wheezes. Chest tube from the left side surgical incision looks fine. CARDIOVASCULAR: No CP, Palpitation, PND, Orthopnea, or angina. GASTROINTESTINAL: No Abd pain, Nausea or vomiting, no Diarrhea or constipation, No GI Bleed, no distention or masses. GENITOURINARY: Negative for Hematuria or UTI, no kidney stones. INTEGUMENT/BREAST: Negative for any muscular injury with mild osteoarthritis.. HEMATOLOGIC/LYMPHATIC: Negative for bleed or purpura. MUSCULOSKELTAL: Negative for Myalgia or arthralgia. NEURLOGICAL: No LOC, Sz or syncope, blurred vision dizziness or abnormality.. BEHAVIORAL/PSYCH: Negative. ENDOCRINE: Negative. PHYSICAL EXAMINATION: General Appearance: Alert, cooperative, no distress, appears stated age. Neck HEENT: Supple, no lymphadenopathy, no thyroid enlargement, no carotid bruits. Lungs: Decreased breath sound in the left side with fine rhonchi no crackles mild expiratory wheezes. Chest Wall: Left side still have chest tube slightly decreased extension no deformity significant tenderness and discomfort. Heart: Regular rate and rhythm, S1, S2 normal, no murmur, rub or gallop. Back: Symmetric, no curvature, ROM normal, no CVA tenderness. Abdomen: Soft, non-tender, bowel sounds active all four quadrants, no masses, no organomegaly. Extremities: Extremities normal, atraumatic, no cyanosis or edema. Pulses: 2+ and symmetric. Skin: Skin color, texture, tugor normal, no rashes or lesions. Neurologic: Alert oriented x3 cranial nerves II through XII intact, no motor deficit, no abnormal balance or gait. ASSESSMENT AND PLAN: _Post robotic assisted thoracoscopy left upper lobectomy with mediastinal lymph node dissection and respond to mass of the left upper lobe which will be assessed by having the whole lobe dissected for any possibility of cancer. Still have chest tube under waterseal of the low continuous suction. _Highly suspicious for lung cancer with mass in left upper lobe postresection with mediastinal lymph node resection as well. _History of hyperlipidemia: Has been on atorvastatin which will be resumed as of tomorrow. _Mild COPD: With FEV1 of 86 percentile still on updraft treatment continue DuoNeb will add Pulmicort continue oxygen as well. _History of smoking and nicotine dependency had a quit last month can benefit from nicotine patch at this point. _Hyperglycemia: With no sign of type 2 diabetes so far blood sugar running in the low 100s on Accu-Chek only he is off steroid today which will help. _BPH: No sign of urinary retention watch symptoms carefully. _Elevated blood pressure: Will continue low-salt diet no medication needed so far. Blood pressure running less than 130s systolic. Discussion: Chest tube was placed under waterseal off the low suction wall, patient is able to ambulate with minimal help in the chair is off oxygen completely still have minimal amount of drainage in the chest tube with the potential again for discharge if not by Thursday most likely by Thursday. Objective - Vital Signs Vital signs: Vital Signs Temp 98.4 F 06/24/24 08:47 Pulse 82 06/24/24 09:33 Resp 16 06/24/24 09:33 BP 117/76 06/24/24 08:47 Pulse Ox 94 L 06/24/24 09:26 FiO2 Intake & Output 06/23/24 06/24/24 06/24/24 18:59 06:59 18:59 Intake Total 1800 480 138 Output Total 370 900 Balance 1430 -420 138 Weight 137.3 kg 138.2 kg Intake: IV 1800 20 Invasive Line 1 10 Invasive Line 2 10 Oral 480 118 Output: Chest Tube Drainage 100 Chest Tube Left Mid- 100 Axillary Chest Urine 350 800 Estimated Blood Loss 20 Other: Voiding Method Indwelling Catheter - Labs CBC & Chem 7: 06/24/24 05:53 06/24/24 05:53 Labs: Abnormal Lab Results - Last 24 Hours (Table) 06/23/24 06/23/24 06/24/24 Range/Units 13:10 13:54 05:53 RBC 3.87 L (4.30-5.90) m/uL Hgb 12.5 L (13.0-17.5) gm/dL Hct 38.2 L (39.0-53.0) % ABG pH 7.32 L 7.34 L (7.35-7.45) ABG pCO2 51 H 47 H (35-45) mmHg ABG pO2 60 L 61 L (83-108) mmHg ABG HCO3 26 H 26 H (21-25) mmol/L ABG Total CO2 28 H 27 H (19-24) mmol/L ABG O2 Saturation 88.5 L 89.9 L (94-97) % Sodium (137-145) mmol/L Glucose (74-99) mg/dL 06/24/24 Range/Units 05:53 RBC (4.30-5.90) m/uL Hgb (13.0-17.5) gm/dL Hct (39.0-53.0) % ABG pH (7.35-7.45) ABG pCO2 (35-45) mmHg ABG pO2 (83-108) mmHg ABG HCO3 (21-25) mmol/L ABG Total CO2 (19-24) mmol/L ABG O2 Saturation (94-97) % Sodium 135 L (137-145) mmol/L Glucose 113 H (74-99) mg/dL
[2024-06-25 06:25] LABS: Glucose,Whole Blood 119 mg/dL (70-110)
--- NOTE | 2024-06-25 06:45 | XR ---
EXAMINATION TYPE: XR chest 2V DATE OF EXAM: 06/25/2024 COMPARISON: 06/23/2024 HISTORY: Postop left upper lobe lobectomy TECHNIQUE: Frontal and lateral views of the chest are obtained. FINDINGS: There is been interval removal of the left chest tube and there is no pneumothorax. Left lung is maulik r. There is been significant reduction in the right upper lobe opacification. A small opacity in the rig ht upper lobe persists. The heart size is prominent. The pulmonary vasculature is not congested. The osseous structures are intact IMPRESSION: 1. Interval removal of the left chest tube. There is no pneumothorax. 2. Minimal focal opacity in the right upper lobe which is improved significantly compared to the prio r study. [facility], Workstation: [id number] 06/25/2024 6:43 AM
[2024-06-25 06:56] LABS: HCT 36.7 % (39.0-53.0); HGB 11.7 gm/dL (13.0-17.5); MCH 31.1 pg (25.0-35.0); MCHC 31.8 g/dL (31.0-37.0); MCV 97.9 fL (80.0-100.0); Mean Platelet Volume 8.5; Platelet Count 212 k/uL (150-450); RBC 3.75 m/uL (4.30-5.90); RDW 12.3 % (11.5-15.5); WBC 6.9 k/uL (3.8-10.6)
[2024-06-25 07:35] LABS: African American GFR (CKD) 80 (>60 ml/min/1.73 sqM); Anion Gap 5 mmol/L; Blood Urea Nitrogen 22 mg/dL (9-20); Calcium 9.5 mg/dL (8.4-10.2); Carbon Dioxide 27 mmol/L (22-30); Chloride 103 mmol/L (98-107); Glucose 106 mg/dL (74-99); Non-African American GFR(CKD) 69 (>60 ml/min/1.73 sqM); Potassium 4.3 mmol/L (3.5-5.1); Sodium 135 mmol/L (137-145)
[2024-06-25 07:36] VITALS: BP 137/81; RESP 20; TEMP 97.7
[2024-06-25 08:18] VITALS: PULSE 80
[2024-06-25] MEDS: HYDROcodone/APAP 7.5-325MG 1 EACH TAB PO PRN (09:55)
--- NOTE | 2024-06-25 09:57 | P.DS ---
Providers Date of admission: 06/23/24 09:10 Expected date of discharge: 06/25/24 Attending physician: Alec Rodriguez Consults: 06/23/24 16:37 Consult Physician Routine Consulting Provider: Mele Prado Consult Reason/Comments: post lobectomy Do you want consulting provider notified?: Yes Consult Physician Routine Consulting Provider: Jordan Bolden Reason/Comments: Medical management Do you want consulting provider notified?: Yes Primary care physician: Jordan Bolden [facility] Course: FINAL DIAGNOSIS: Left upper lobe central mass, lung cancer, status post robotic assisted thoracoscopic left upper lobectomy with mediastinal lymph node dissection History of COPD with a preoperative FEV1 3.3 L which is 86% of predicted value Hyperlipidemia Morbid obesity with a BMI of 41.3 kg/m BPH Osteoarthritis History of chronic tobacco dependence, quit smoking 1 to 2 weeks ago PRINCIPAL PROCEDURE: Robotic assisted thoracoscopic left upper lobectomy with mediastinal lymph node dissection. HISTORY OF PRESENT ILLNESS: This is a 59-year-old gentleman who follows outpatient with Dr. Jordan Bolden for his primary care and Dr Augustin for his pulmonology care. The patient was an active smoker and underwent screening CT scan of his chest at [facility] and January 2024. The CT scan incidentally found a left upper lobe fairly central mass. For further evaluati on he underwent a PET CT scan in April 2024 which demonstrated uptake in the central mass measuring 2.0 cm x 3.0 cm, and also showed a small satellite nodule more superficially in the lung which did not demonstrate any uptake and measured about 1 cm. The patient was evaluated by Dr. Augustin from pulmonary/critical care medicine and subsequently the patient underwent a bronchoscopy which was nondiagnostic. A consult was then placed to Dr. Alec Rodriguez from cardiothoracic surgery for further evaluation and treatment recommendations. The patient's preoperative pulmonary function test was consistent with mild lung disease with an FEV1 of 3.3 L, 86% of predicted value and a DLCO of 26.57, 75% of predicted value. Dr. Rodriguez met with the patient, treatment options were discussed including a robotic assisted thoracoscopic left upper lobectomy with mediastinal lymph node dissection, risks and benefits of surgery were discussed and knowing and understanding the risks the patient wished to proceed with an elective surgery. HOSPITAL COURSE: The patient was brought to the hospital on June 23, 2024, taken to the preoperative area, prepared in the usual fashion, and subsequently taken to the operating room where Dr. Rodriguez performed robotic assisted thoracoscopic left upper lobectomy with mediastinal lymph node dissection. Upon completion of surgery the patient was extubated and taken to the recovery room for further monitoring. He was eventually admitted to 3 S. cardiac stepdown for further monitoring and recovery. His oxygen was titrated down, he was tolerating oral diet, his pain was controlled. His chest tube was removed on postoperative day #1, and he was ready to be discharged to home on postoperative day #2. He received written and verbal instruction regarding his medications, activity restrictions, signs and symptoms requiring physician notification, and follow-up appointments. Plan - Discharge Summary Discharge Rx Participant: No New Discharge Prescriptions: New methocarbamoL [Robaxin-750] 750 mg PO Q8HR #9 tab HYDROcodone/APAP 7.5-325MG [[place] 7.5-325] 1 each PO Q6HR PRN #12 tab PRN Reason: Pain Continue Vit D (Unk) 1 tab PO DAILY Ibuprofen 800 mg PO Q8H PRN PRN Reason: Pain Atorvastatin(Unknown Dose) 1 tab PO DAILY Discharge Medication List Ibuprofen 800 mg PO Q8H PRN 05/23/24 [History] Vit D (Unk) 1 tab PO DAILY 05/23/24 [History] Atorvastatin(Unknown Dose) 1 tab PO DAILY 06/16/24 [History] HYDROcodone/APAP 7.5-325MG [[place] 7.5-325] 1 each PO Q6HR PRN #12 tab 06/25/24 [Rx] methocarbamoL [Robaxin-750] 750 mg PO Q8HR #9 tab 06/25/24 [Rx] Follow up Appointment(s)/Referral(s): Rohit Augustin MD [STAFF PHYSICIAN] - 1 Week Jordan Bolden MD [Primary Care Provider] - 1 Week Alec Rodriguez MD [STAFF PHYSICIAN] - 1 Week (Office will call with a follow up appointment on Thursday ) Activity/Diet/Wound Care/Special Instructions: DISCHARGE INSTRUCTIONS: 1. No driving for 2 weeks, or until physician gives their ok. 2. No lifting, pushing, or pulling more than 10 pounds for 2 weeks. The physician will advise of any restriction changes. 3. Continue pain control per as needed orders. Alternate acetaminophen (Tylenol) and ibuprofen (Motrin/Advil) for pain. Do not take Tylenol while taking [place]. 4. Continue with incentive spirometry and splinting until otherwise directed by the physician. 5. Leave chest tube dressing for 48 hours. After that, remove all dressings and shower daily. 6. Routine incision care. No powders, lotions, ointments on incisions. 7. Please call surgeon/REHABILITATION PROGRAM COORDINATOR for temp greater than 101 F or purulent drainage from incisions. 8. Smoking cessation counseling and program information provided. Quitting smoking is the most important step you can take to improve your health. For additional information and assistance to quit smoking, please call the [place] tobacco quit line (2-622-VRIO-NOW/ ) or online: [email or web address] [email or web address] Discharge Disposition: HOME SELF-CARE
[2024-06-25] MEDS: methocarbamoL 750 MG TAB PO SCH (10:45)
--- NOTE | 2024-06-25 10:58 | P.PN ---
Subjective Progress Note Date: 06/25/24 Principal diagnosis: Suspected lung cancer. Pulmonary consultation dated June 24, 2024. This is a 59-year-old male who is seen today in room 354. The patient is postoperative day #1, status post robotically assisted left upper lobectomy, with mediastinal lymph node dissection, for suspected lung cancer. The patient had robotic bronchoscopy with my partner, but the sampling was nondiagnostic. Because a lesion in the left upper lobe was FDG avid, the patient was subjected to excisional surgery, by Dr. Rodriguez, which took place yesterday. Currently, the patient is on room air. He is not receiving any IV fluids. He is hoping to be discharged tomorrow. He is feeling very well. Current labs include a white count 8.8, hemoglobin 12.5, hematocrit 38.2, and a normal platelet count. Sodium 135, potassium 4.3, chlorides 102, CO2 24, anion gap 9, BUN 19, creatinine 1.02. Calcium is 9.2. Chest x-ray shows significantly improved aeration, to the right upper lobe. Left-sided chest tube is noted. No pneumothorax. Progress note dated June 25, 2024. The patient is seen today in room 354. The patient is hoping to be discharged. He is on room air. No fluids. Chest tube is out. Chest x-ray showed no pneumothorax. The patient will follow-up with my partner in the office. Current labs include a white count 6.9, hemoglobin 11.7, hematocrit 36.7, and a platelet count is normal. Sodium 135, potassium 4.3, chlorides 103, CO2 27, BUN 22, and creatinine 1.14. Glucose is 119. Calcium is 9.5. Chest x-ray shows removal of the left chest tube, there is no pneumothorax. Objective - Vital Signs Vital signs: Vital Signs Temp 97.7 F 06/25/24 07:32 Pulse 80 06/25/24 08:17 Resp 20 06/25/24 07:32 BP 137/81 06/25/24 07:32 Pulse Ox 95 06/25/24 08:05 FiO2 Intake & Output 06/24/24 06/25/24 06/25/24 18:59 06:59 18:59 Intake Total 558 40 200 Output Total 210 1200 Balance 348 -1160 200 Weight 139.5 kg Intake: IV 40 40 20 Invasive Line 1 20 20 10 Invasive Line 2 20 20 10 Oral 518 180 Output: Chest Tube Drainage 10 Chest Tube Left Mid- 10 Axillary Chest Urine 200 1200 Other: Voiding Method Toilet Toilet Toilet # Voids 3 1 - Exam No acute distress, oriented 3. HEENT examination is grossly unremarkable. Mucous membranes are moist. No oral lesions. Neck supple. Full range of motion. No adenopathy thyromegaly or neck vein distention. Cardiovascular examination reveals regular rhythm rate. S1-S2 normal. No S3 or S4. No discernible murmur noted. Lungs reveal minimal expiratory rhonchi. No wheezes or crackles. Breath sounds equal. Abdomen soft bowel sounds are heard. No masses or tenderness. Extremities are intact. No cyanosis clubbing or edema. Skin is without rash or lesion. Neurologic examination is brief but nonfocal. - Labs CBC & Chem 7: 06/25/24 05:42 06/25/24 05:42 Labs: Abnormal Lab Results - Last 24 Hours (Table) 06/24/24 06/24/24 06/24/24 Range/Units 12:06 16:21 20:03 RBC (4.30-5.90) m/uL Hgb (13.0-17.5) gm/dL Hct (39.0-53.0) % Sodium (137-145) mmol/L BUN (9-20) mg/dL Glucose (74-99) mg/dL POC Glucose (mg/dL) 160 H 123 H 132 H (70-110) mg/dL 06/25/24 06/25/24 06/25/24 Range/Units 05:42 05:42 06:22 RBC 3.75 L (4.30-5.90) m/uL Hgb 11.7 L (13.0-17.5) gm/dL Hct 36.7 L (39.0-53.0) % Sodium 135 L (137-145) mmol/L BUN 22 H (9-20) mg/dL Glucose 106 H (74-99) mg/dL POC Glucose (mg/dL) 119 H (70-110) mg/dL Assessment and Plan Assessment: Postoperative day #2, status post robotically assisted left upper lobectomy and mediastinal lymph node dissection. Suspected lung cancer, left upper lobe. History of mild COPD. History of hyperlipidemia. Prior history of nicotine addiction. BPH. Osteoarthritis. Plan: Plan dated June 24, 2024. The patient is seen today in room 354. He is on room air. No IV fluids. The patient is postoperative day #1, status post robotically assisted left upper lobe lobectomy, and mediastinal lymph node dissection. The patient had previous robotic bronchoscopy, but sampling was nondiagnostic. The lesion in the left upper lobe was FDG avid. Labs, x-rays, and medications are reviewed. Prognosis is guarded. Will continue to follow. Pathology is not yet back. Plan dated June 25, 2024. The patient is doing very well. Chest tube has been removed. The patient is on room air. There is no pneumothorax on follow-up chest x-ray. The patient is not receiving any IV fluids. Labs, x-rays, and medications are reviewed. The patient will likely be discharged sometime later today. Time with Patient: Less than 30
--- NOTE | 2024-06-25 16:28 | P.PN ---
Subjective Progress Note Date: 06/25/24 HISTORY OF PRESENT ILLNESS: 59-year-old one of our office patient who has been seen for the last few months as a new patient was originally presented to get established with his history of mild dyspnea and shortness of breath and cough obtained an x-ray of the lung and furthermore CAT scan shows left upper lobe fairly central mass he had a PET scan performed in the end of April which showed uptake in the mass it also showed small satellite nodular more superficial in the lung which did not have any uptake and measure about 1 cm, central mass measured about 2 to 3 cm the patient underwent bronchoscopy with Dr. GOLDBERG with biopsy and fortunately was nonconclusive. Was referred to cardiothoracic for consideration of lobectomy. Lung function test done and showed FEV1 of 86 percentile patient was scheduled for elective surgery today 06/23/2024, ended up having robotic assisted thoracoscopy of the left upper lobectomy with mediastinal lymph node dissection successful procedure and ended up leaving chest tube with suction. Patient is having slight shortness of breath require O2, mild nausea without vomiting, quite bit pain required pain meds which has been doing well. Otherwise able to void IV is going well vital signs Remain stable with pulse of 72 respiration 18 blood pressure 117/76 with pulse oximetry to 96 percentile. 06/24/2024: He is doing very well out of bed today his chest tube draining slight only, was evaluated by pulmonary today he is not on any IV fluid no sign of bleeding, chest tube still draining with no airleak. Vitals are stable with pulse ox on room air between 93 and 96 percentile. Blood pressure stable. Laboratory value today globin 12.5 kidney function and creatinine are normal. His blood sugar the highest was 160 in between lowest was around 120 still on insulin per sliding scales and at some point patient will benefit from SGLT2 product if proven to have hyperglycemia with early stage of diabetes but his blood sugar was elevated probably because of the steroid he received yesterday. 06/25/2024: He is doing very well he is ambulating does not require any help, chest tube came out yesterday successfully no airleak repeat chest x-ray looking good. Patient has been cleared by cardiothoracic and pulmonary medication reconciliation was done the patient will be seen in the office next week. Still waiting for his final pathology report which might not be reportedly another week. Patient does not require any oxygen pulse ox on room air is 95 percentile vitals are stable patient is not febrile. Lab today with hemoglobin 11.7 kidney function remained good with GFR 69 blood sugar was 106 and 119. For the most patient might benefit eventually from metformin for now with the use of steroid early day or 2 and his admission created mild hyperglycemia to be watch only. REVIEW OF SYSTEMS: CONSTITUTIONAL: Mildly obese wearing oxygen in no acute respiratory distress. EYES: No icterus sclerae, no conjunctivitis. EARS, NOSE, MOUTH, THROAT, and FACE: No sore throat, lymphadenopathy, carotid bruits or deformity. RESPIRATORY: Positive for significant shortness of breath no cough or wheezes. Chest tube from the left side surgical incision looks fine. CARDIOVASCULAR: No CP, Palpitation, PND, Orthopnea, or angina. GASTROINTESTINAL: No Abd pain, Nausea or vomiting, no Diarrhea or constipation, No GI Bleed, no distention or masses. GENITOURINARY: Negative for Hematuria or UTI, no kidney stones. INTEGUMENT/BREAST: Negative for any muscular injury with mild osteoarthritis.. HEMATOLOGIC/LYMPHATIC: Negative for bleed or purpura. MUSCULOSKELTAL: Negative for Myalgia or arthralgia. NEURLOGICAL: No LOC, Sz or syncope, blurred vision dizziness or abnormality.. BEHAVIORAL/PSYCH: Negative. ENDOCRINE: Negative. PHYSICAL EXAMINATION: General Appearance: Alert, cooperative, no distress, appears stated age. Neck HEENT: Supple, no lymphadenopathy, no thyroid enlargement, no carotid bruits. Lungs: Decreased breath sound in the left side with fine rhonchi no crackles mild expiratory wheezes. Chest Wall: Left side still have chest tube slightly decreased extension no deformity significant tenderness and discomfort. Heart: Regular rate and rhythm, S1, S2 normal, no murmur, rub or gallop. Back: Symmetric, no curvature, ROM normal, no CVA tenderness. Abdomen: Soft, non-tender, bowel sounds active all four quadrants, no masses, no organomegaly. Extremities: Extremities normal, atraumatic, no cyanosis or edema. Pulses: 2+ and symmetric. Skin: Skin color, texture, tugor normal, no rashes or lesions. Neurologic: Alert oriented x3 cranial nerves II through XII intact, no motor deficit, no abnormal balance or gait. ASSESSMENT AND PLAN: _Post robotic assisted thoracoscopy left upper lobectomy with mediastinal lymph node dissection and respond to mass of the left upper lobe which will be assessed by having the whole lobe dissected for any possibility of cancer. Ches t tube is out patient is doing very well does not require any oxygen his pathology report hopefully will report next week patient is going to be discharged today. _Mild COPD: With FEV1 of 86 percentile still on updraft treatment continue DuoNeb will add Pulmicort continue oxygen as well. So far does not require any oxygen. _Highly suspicious for lung cancer with mass in left upper lobe postresection with mediastinal lymph node resection as well. _History of hyperlipidemia: Has been on atorvastatin which will be resumed as of tomorrow. _Hyperglycemia: With no sign of type 2 diabetes so far blood sugar running in the low 100s on Accu-Chek only he is off steroid today which will help. Blood sugar is running good might require to start metformin as an outpatient. _History of smoking and nicotine dependency had a quit last month can benefit from nicotine patch at this point. Patient refused nicotine patch. _BPH: No sign of urinary retention watch symptoms carefully. _Elevated blood pressure: Will continue low-salt diet no medication needed so far. Blood pressure running less than 130s systolic. Discussion: Chest tube is out, patient does not require any oxygen and he is goi ng to be discharged home today to follow-up by cardiothoracic and pulmonary in the next few days and follow-up in our office in 1 week. Objective - Vital Signs Vital signs: Vital Signs Temp 97.7 F 06/25/24 07:32 Pulse 80 06/25/24 08:17 Resp 20 06/25/24 07:32 BP 137/81 06/25/24 07:32 Pulse Ox 95 06/25/24 08:05 FiO2 Intake & Output 06/24/24 06/25/24 06/25/24 18:59 06:59 18:59 Intake Total 558 40 20 Output Total 210 1200 Balance 348 -1160 20 Weight 139.5 kg Intake: IV 40 40 20 Invasive Line 1 20 20 10 Invasive Line 2 20 20 10 Oral 518 Output: Chest Tube Drainage 10 Chest Tube Left Mid- 10 Axillary Chest Urine 200 1200 Other: Voiding Method Toilet Toilet Toilet # Voids 3 1 - Labs CBC & Chem 7: 06/25/24 05:42 06/25/24 05:42 Labs: Abnormal Lab Results - Last 24 Hours (Table) 06/24/24 06/24/24 06/24/24 Range/Units 12:06 16:21 20:03 RBC (4.30-5.90) m/uL Hgb (13.0-17.5) gm/dL Hct (39.0-53.0) % Sodium (137-145) mmol/L BUN (9-20) mg/dL Glucose (74-99) mg/dL POC Glucose (mg/dL) 160 H 123 H 132 H (70-110) mg/dL 06/25/24 06/25/24 06/25/24 Range/Units 05:42 05:42 06:22 RBC 3.75 L (4.30-5.90) m/uL Hgb 11.7 L (13.0-17.5) gm/dL Hct 36.7 L (39.0-53.0) % Sodium 135 L (137-145) mmol/L BUN 22 H (9-20) mg/dL Glucose 106 H (74-99) mg/dL POC Glucose (mg/dL) 119 H (70-110) mg/dL
== END 2024-06-25 11:09 | disposition home or self-care (01) | DRG 164 ==
LOC: 2ORMAIN 09:10 → 3SCARD 15:35
PROVIDERS: ADMIT Thoracic Surgery (Cardiothoracic Vascular Surgery); ATTEND Thoracic Surgery (Cardiothoracic Vascular Surgery)
PROC: 07B74ZX Excision of Thorax Lymphatic, Percutaneous Endoscopic Approach, Diagnostic (ICD-10-PCS; 2024-06-23)
PROC: 8E0W4CZ Robotic Assisted Procedure of Trunk Region, Percutaneous Endoscopic Approach (ICD-10-PCS; 2024-06-23)
PROC: 0BTG4ZZ Resection of Left Upper Lung Lobe, Percutaneous Endoscopic Approach (ICD-10-PCS; principal; 2024-06-23 10:55)
DX: C34.12 Malignant neoplasm of upper lobe, left bronchus or lung (principal); Z68.41 Body mass index [BMI] 40.0-44.9, adult; E78.5 Hyperlipidemia, unspecified; J44.9 Chronic obstructive pulmonary disease, unspecified; R73.9 Hyperglycemia, unspecified; N40.0 Benign prostatic hyperplasia without lower urinary tract symptoms; E66.01 Morbid (severe) obesity due to excess calories; M19.90 Unspecified osteoarthritis, unspecified site; Z87.891 Personal history of nicotine dependence; Z79.899 Other long term (current) drug therapy
CPT/HCPCS: 64999; 71045; 71046; 80048; 82805; 85025; 85027; 88305; 88309; 88331; 94640; 94760

== ENCOUNTER → 2025-01-02 | Outpatient (CLI) | payer BC ==
--- NOTE | 2025-01-02 15:46 | CT ---
EXAMINATION TYPE: CT chest w con DATE OF EXAM: 01/02/2025 3:18 PM COMPARISON: 05/26/2024. CLINICAL INDICATION: Male, 59 years old with history of C34.90 LUNG CA, 6 month follow up for lung C a TECHNIQUE: Multiple axial images were obtained through the chest. Sagittal and coronal reformats were created for review. MIP was performed on a separate workstation. Contrast used:100 mL of Isovue 300 with IV Contrast (None if empty) Oral contrast used: (None if empty) CT DLP: 676.6 mGycm, Automated exposure control for dose reduction was used. FINDINGS: LUNGS/ PLEURA: Postsurgical changes of left upper lung no enlarging soft tissue mass no new pulmonary nodules. No focal consolidation, pneumothorax or pleural effusion. AIRWAY: Patent and unremarkable. HEART: Size within normal limits. No significant coronary artery calcifications. Lipomatous hypertrop hy of interatrial septum. MEDIASTINUM: No gross evidence of adenopathy. VASCULATURE: No aortic aneurysm. MUSCULOSKELETAL: No acute osseous abnormalities SOFT TISSUES/LYMPH NODES: Unremarkable. LOWER NECK: No significant findings. UPPER ABDOMEN: Gallstones layering the gallbladder lumen.e IMPRESSION: 1. Postsurgical changes left upper lobe. No evidence for local recurrence. No evidence for lymphaden opathy or other suspicious finding to suggest metastatic disease at this time. 2. Cholelithiasis. [facility], , 01/02/2025 3:44 PM
== END | disposition home or self-care (01) ==
LOC: RADCTMAIN 14:32
PROVIDERS: ATTEND Internal Medicine Critical Care Medicine
DX: C34.92 Malignant neoplasm of unspecified part of left bronchus or lung (principal); K80.20 Calculus of gallbladder without cholecystitis without obstruction; Z98.890 Other specified postprocedural states
CPT/HCPCS: 71260; Q9967